=== PATIENT | female | born 1970 | race Caucasian/White ===

== ENCOUNTER 2020-05-05 21:14 | Emergency (ER) | payer OTHER, SELFPAY ==
[2020-05-05 21:23] VITALS: BP 98/57; PULSE 92; RESP 18; TEMP 36.4; O2SAT 100
[2020-05-05] MEDS: CYCLOBENZAPRINE HCL 10 MG TABLET PO (21:49)
[2020-05-05] MEDS: KETOROLAC (*BKC) 60 MG/2 ML VIAL IM (21:49)
--- NOTE | 2020-05-05 21:55 | ED.LOWEXIN ---
HPI - Extremity Injury (Lower) General Chief Complaint: Extremity Injury, Lower Stated Complaint: hip pain Time Seen by Provider: 05/05/20 21:22 History of Present Illness HPI Narrative: Patient is a 49-year-old female who presents ER with right hip pain and low back pain. Patient reports this been a chronic issue for months. She is supposed to see an orthopedic surgeon but unsure as to what the plan was going to be. No known trauma. Reports she was outside sitting on a bucket spray painting furniture and she thinks that aggravated her discomfort. Radiates into her right medial thigh. No urinary frequency or urgency. No numbness or tingling or focal weakness. She is tried ibuprofen without relief. No urinary symptoms. Related Data Home Medications Medication Instructions Recorded Confirmed No Home Medications 05/05/20 05/05/20 Allergies Allergy/AdvReac Type Severity Reaction Status Date / Time Penicillins Allergy Intermediate Swelling Verified 05/05/20 22:27 Review of Systems Review of Systems: All systems reviewed & are unremarkable except as noted in HPI and below Constitutional: Constitutional: Denies chills and Denies fever(s) Gastrointestinal: Gastrointestinal: Denies abdominal pain, Denies nausea and Denies vomiting Musculoskeletal: Musculoskeletal: Reports back pain, Denies arthralgias, Denies joint swelling and Reports muscle cramps Neurologic: Denies focal weakness and Denies numbness PMFSH Past Medical History Medical History (Updated 05/05/20 @ 22:37 by Nigel Napier MD) History of sciatica Surgical History Surgical History (Updated 05/05/20 @ 21:58 by Nigel Napier MD) History of gastric bypass History of hysterectomy Social History Social History (Updated 05/05/20 @ 21:58 by Nigel Napier MD) Smoking status: Current every day smoker Tobacco type: cigarettes Substance use type: marijuana Exam Narrative: Exam Narrative: GENERAL: Uncomfortable-appearing, well-nourished, and in no acute distress. HEAD: Normocephalic, atraumatic. CHEST: Clear to auscultation. No respiratory distress. HEART: Regular rate and rhythm. Normal peripheral pulses. EXTREMITIES: Normal range of motion. No edema. Back: No midline tenderness of thoracic or lumbar spine. There is some muscular tenderness in the lower lumbar and SI region on the right side that worsens patient's pain. SKIN: Warm, dry, no rash. NEURO: No focal deficits. Alert and oriented x3. PSYCH: Normal mood and affect. Course Course Emergency Course: Pain markedly improved with Toradol and cyclobenzaprine. Discharge home with supportive therapy. Vital Signs Vital signs: Vital Signs Temperature 97.6 F 05/05/20 21:23 Pulse Rate 92 05/05/20 21:23 Respiratory Rate 18 05/05/20 21:23 Blood Pressure 98/57 L 05/05/20 21:23 Pulse Oximetry 100 05/05/20 21:23 Temperature 97.6 F 05/05/20 21:23 Pulse Rate 92 05/05/20 21:23 Respiratory Rate 18 05/05/20 21:23 Blood Pressure 98/57 L 05/05/20 21:23 Pulse Oximetry 100 05/05/20 21:23 Discharge Plan Discharge Clinical Impression: Sciatica Patient Disposition: Home, Self-Care Condition: Stable Instructions: Sciatica (ED) Additional Instructions: Return to the ER if you have increased pain in your back, you develop lower extremity weakness/numbness/paralysis, you have numbness or tingling in your private parts, or you are unable to control your ability to urinate/stool. Prescriptions: New cyclobenzaprine 10 mg tablet 10 mg PO TID PRN (Reason: muscle spasm) Qty: 20 RF: 0 No Action No Home Medications RF: 0 Follow-up/Referrals: Fatimah,Deniz Maldonado MD [Primary Care Provider] - 1 Week
[2020-05-05 22:55] VITALS: BP 104/70; PULSE 77; RESP 18; O2SAT 97
== END 2020-05-05 22:58 | disposition home or self-care (01) ==
PROVIDERS: Emergency Provider Emergency Medicine; PCP Internal Medicine
DX: M54.41 Lumbago with sciatica, right side (principal)
CPT/HCPCS: 96372; 99283; A9270; J1885